=== PATIENT | female | born 1980 | race Caucasian/White ===

== ENCOUNTER 2017-08-25 22:58 | Emergency (ER) | payer BC, OTHER ==
[~2017-08-25 22:58] MED LIST: IBUP-2213 PO; PSEU60TA51 PO; [UNRECOGNIZED DRUG - CODE] PO
--- NOTE | 2017-08-25 23:00 | NUR ---
PATIENT CALLED [facility] TRI[facility] NO RESPONSE, PATIENT LEFT WITHOUT BEING SEEN BY DR. LOAIZA. NO FURTHER CARE PROVIDED FOR PATIENT.
== END 2017-08-25 23:00 | disposition left against medical advice (07) ==
LOC: MED 22:58
DX: M79.606 Pain in leg, unspecified (principal); Z53.21 Procedure and treatment not carried out due to patient leaving prior to being seen by health care provider

== ENCOUNTER 2017-08-28 03:50 | Emergency (ER) | payer OTHER ==
[~2017-08-28] VITALS: Ht 165.1 cm; Wt 81.6 kg
[2017-08-28 03:55] VITALS: BP 117/78
[2017-08-28 04:10] VITALS: BP 128/82
--- NOTE | 2017-08-28 04:22 | NUR ---
DR CARDOZA AT BEDSIDE EVALUATING PT.
--- NOTE | 2017-08-28 04:23 | NUR ---
PATIENT PRESENTS TO ED WITH RT KNEE PAIN . PT STATES SHE FELL ON THURSDAY AND HAS HAD PAIN TO RT KNEE SINCE THEN, PT HAS BEEN SEEN IN URGENT CARE AND WAS REFFERED FOR MRI AND TO SEE PCP BUT PCP OFFICE IS CLOSED . DENIES N/V/D; SKIN IS PINK/WARM/DRY; AAOX4 WITH EVEN AND STEADY GAIT; LUNGS CLEAR BL; HR EVEN AND REGULAR; PT DENIES ANY FEVER, CP, SOB, OR COUGH AT THIS TIME; PATIENT STATES PAIN OF 7/10 AT THIS TIME; VSS; PATIENT POSITIONED FOR COMFORT; HOB ELEVATED; BEDRAILS UP X2; BED DOWN. ER MD MADE AWARE OF PT STATUS.
== END 2017-08-28 04:40 | disposition home or self-care (01) ==
LOC: MED 03:50
DX: S83.91XA Sprain of unspecified site of right knee, initial encounter (principal); W18.30XA Fall on same level, unspecified, initial encounter; Y93.23 Activity, snow (alpine) (downhill) skiing, snowboarding, sledding, tobogganing and snow tubing; Y92.89 Other specified places as the place of occurrence of the external cause; Y99.8 Other external cause status
CPT/HCPCS: 99283

== ENCOUNTER 2018-06-28 20:57 | Emergency (ER) | payer OTHER, BC ==
[~2018-06-28] VITALS: Ht 167.6 cm; Wt 90.7 kg
[2018-06-28 21:10] VITALS: BP 162/100
--- NOTE | 2018-06-28 21:21 | NUR ---
EKG done in triage.
--- NOTE | 2018-06-28 21:25 | NUR ---
Pt placed in W/C and assisted to bathroom.
--- NOTE | 2018-06-28 22:00 | NUR ---
PATIENT PRESENTS TO ED WITH ORTIZ +N/V SINCE THURSDAY. SKIN IS PINK/WARM/DRY; AAOX4 WITH EVEN AND STEADY GAIT; LUNGS CLEAR BL; HR EVEN AND REGULAR; PT DENIES ANY FEVER, CP, SOB, OR COUGH AT THIS TIME; PATIENT STATES PAIN OF 8/10 AT THIS TIME; VSS; PATIENT POSITIONED FOR COMFORT; HOB ELEVATED; BEDRAILS UP X2; BED DOWN. ER MD MADE AWARE OF PT STATUS.
--- NOTE | 2018-06-29 00:55 | NUR ---
Dr. Bates evaluating patient at bedside.
[2018-06-29] MEDS ORDERED: ONDANSETRON 4 MG/2 ML VIAL IVP ONE (01:00)
--- NOTE | 2018-06-29 01:24 | NUR ---
PT TAKEN TO CT
--- NOTE | 2018-06-29 01:24 | NUR ---
Gary berg in [facility] - 06/29/18 at 0124 by NOHEMI PT RETURN FROM CT
[2018-06-29 01:31] LABS: BASOPHILS # (AUTO) 0.1 K/uL (0.00-0.22); BASOPHILS % (AUTO) 0.6 % (0.0-2.0); EOSINOPHILS # (AUTO) 0.1 K/uL (0-0.4); EOSINOPHILS % (AUTO) 0.7 % (0.0-4.0); HEMATOCRIT 36.7 % (36-48); HEMOGLOBIN 11.9 g/dL (12.0-16.0); LYMPHOCYTES # (AUTO) 3.2 K/uL (2.5-16.5); LYMPHOCYTES % (AUTO) 29.7 % (20.5-51.1); MEAN CORPUSCULAR HEMOGLOBIN 25 pg (27-31); MEAN CORPUSCULAR HGB CONC 32 g/dL (33-37); MEAN CORPUSCULAR VOLUME 76.6 fL (80-94); MONOCYTES # (AUTO) 0.6 K/uL (0.8-1.0); MONOCYTES % (AUTO) 5.4 % (1.7-9.3); NEUTROPHILS # (AUTO) 6.9 K/uL (1.8-7.7); NEUTROPHILS % (AUTO) 63.6 % (42.2-75.2); PLATELET COUNT (AUTO) 348 K/uL (140-450); WHITE BLOOD COUNT (AUTO) 10.9 K/uL (4.8-10.8)
--- NOTE | 2018-06-29 01:38 | NUR ---
PT BROUGHT BACK FROM CT
[2018-06-29 01:51] LABS: CREATININE 0.6 mg/dL (0.6-1.3); POTASSIUM 3.4 mmol/L (3.5-5.1); TOTAL BILIRUBIN 0.3 mg/dL (0.0-1.0)
[2018-06-29 01:59] LABS: ANION GAP 13.4 (8-16)
[2018-06-29 02:07] LABS: APPEARANCE,URINE CLEAR (CLEAR); BILIRUBIN,URINE NEGATIVE (NEGATIVE); BLOOD, URINE 4+ (NEGATIVE); COLOR,URINE YELLOW (YELLOW); LEUKOCYTE ESTERASE ,URINE NEGATIVE (NEGATIVE); NITRITE, URINE NEGATIVE (NEGATIVE); PH,URINE 6.5 (5.0-9.0); UGLUCOSE NEGATIVE (NEGATIVE)
[2018-06-29 02:08] LABS: RBC,URINE 3-10 (FEW) /HPF (0-5); WBC,URINE 0-5 (RARE) /HPF (0-5)
[2018-06-29] MEDS ORDERED: KETOROLAC 30 MG/ML VIAL IVP ONE (02:45)
--- NOTE | 2018-06-29 03:05 | NUR ---
ALL RESULTS BACK AND NOTED BY ERMD AND FOR D/C
[2018-06-29 03:21] VITALS: BP 132/82
--- NOTE | 2018-06-29 03:21 | NUR ---
Patient discharged with v/s stable. Written and verbal after care instructions given and explained. Patient alert, oriented and verbalized understanding of instructions. Ambulatory with steady gait. All questions addressed prior to discharge. ID band removed. Patient advised to follow up with PMD. Rx of NORCO, IBUPROFEN given. Patient educated on indication of medication including possible reaction and side effects. Opportunity to ask questions provided and answered.
== END 2018-06-29 03:21 | disposition home or self-care (01) ==
LOC: MED 20:57
DX: R51 Headache (principal); R11.2 Nausea with vomiting, unspecified; R42 Dizziness and giddiness; I10 Essential (primary) hypertension; Z79.899 Other long term (current) drug therapy
CPT/HCPCS: 36415; 70450; 80053; 81001; 81025; 82948; 85025; 93005; 96374; 96375; 99285; J1885; J2405